=== PATIENT | female | born 1970 | race American Indian/Alaskan Native ===

== ENCOUNTER 2016-10-22 07:25 | Emergency (ER) | payer MEDICAID ==
[2016-10-22 07:53] VITALS: BMI 26.4
--- NOTE | 2016-10-22 08:48 | C.PDOC ---
History Of Present Illness 46 y/o female with hx of migraines, on topamax bid and imitrex for breakthrough pain, c/o gradual onset diffuse headache, similar to prior migraine headaches, since Saturday. pt tried imitrex on 2 occasions with no relief. +photophobia, + nausea, vomited 2 x yesterday. pt had intermittent blurred vision. pt reports more frequent headaches in last month. no fever or chills. no head trauma. no neck stiffness. Time Seen by Provider: 10/22/16 08:11 Chief Complaint (Nursing): Headache History Per: Patient History/Exam Limitations: no limitations Onset/Duration Of Symptoms: Persistent (1 month ), Worse Since (3 days) Current Symptoms Are (Timing): Still Present Severity: Moderate Pain Scale Rating Of: 8 Quality: Sharp Preceeding Symptoms: Visual Disturbances, Known Migraine Symptoms Associated Symptoms: Photophobia, Blurred Vision, Nausea, Vomiting. denies: Extremity Weakness Recent travel outside of the [place]: No Past Medical History Reviewed: Historical Data, Nursing Documentation, Vital Signs Vital Signs: Last Vital Signs Temp 97.7 F 10/22/16 07:35 Pulse 91 H 10/22/16 07:35 Resp 20 10/22/16 07:35 BP 117/83 10/22/16 07:35 Pulse Ox 99 10/22/16 09:04 - Medical History PMH: Asthma, HTN, Migraine Surgical History: No Surg Hx - [facility] Procedures ESOPHAGOGASTRODUODENOSCOPY [EGD] W/CLOSED BIOPSY (05/20/14) Family History: States: No Known Family Hx - Social History Hx Tobacco Use: No Hx Alcohol Use: Yes (wine on occasion) Hx Substance Use: No (Denied) - Immunization History Hx Tetanus Toxoid Vaccination: No Hx Influenza Vaccination: Yes (Jun 2015) Hx Pneumococcal Vaccination: No Review Of Systems Except As Marked, All Systems Reviewed And Found Negative. Constitutional: Negative for: Fever, Chills Eyes: Positive for: Vision Change (intermittent blurred vision). Negative for: Pain Cardiovascular: Negative for: Chest Pain, Palpitations Respiratory: Negative for: Cough, Shortness of Breath Gastrointestinal: Positive for: Nausea, Vomiting. Negative for: Abdominal Pain Neurological: Positive for: Headache. Negative for: Weakness, Numbness, Confusion, Altered Mental Status, Dizziness Physical Exam - Physical Exam Appears: Non-toxic, No Acute Distress Skin: Warm, Dry, No Rash Head: Atraumatic, Normacephalic Eye(s): bilateral: Normal Inspection, PERRL, EOMI Ear(s): Bilateral: Normal Nose: Normal Throat: Normal, No Erythema, No Exudate Neck: Normal, Normal ROM, Supple Chest: Symmetrical, No Tenderness Cardiovascular: Rhythm Regular, No Murmur Respiratory: Normal Breath Sounds, No Rales, No Wheezing Gastrointestinal/Abdominal: Normal Exam, Soft, No Tenderness, No Guarding, No Rebound Extremity: Normal ROM, No Swelling Neurological/Psych: Oriented x3, Normal Speech, Normal Motor, Normal Sensation Gait: Steady ED Course And Treatment - Laboratory Results Urine POC: Negative O2 Sat by Pulse Oximetry: 99 Progress Note: pt reports decreased pain after Reglan. Will give toradol and re- assess. 1037 am pt reports rapp resolved. Medical Decision Making Medical Decision Making: PLAN: * POC Urine * Reglan IVPB Disposition Counseled Patient/Family Regarding: Diagnosis, Need For Followup - Disposition Disposition: HOME/ ROUTINE Disposition Time: 10:37 Condition: IMPROVED Additional Instructions: Follow up with your doctor in 1=2 days. Return to ER for any worsening symptoms. Forms: General Discharge Instructions - Clinical Impression Clinical Impression: Migraine - PA / S[employer]IOR [employer] / Resident Statement MD/DO has reviewed & agrees with the documentation as recorded. - Scribe Statement The provider has reviewed the documentation as recorded by the Scribe Rosio Hart All medical record entries made by the Scribe were at my direction and personally dictated by me. I have reviewed the chart and agree that the record accurately reflects my personal performance of the history, physical exam, medical decision making, and the department course for this patient. I have also personally directed, reviewed, and agree with the discharge instructions and disposition.
[2016-10-22 10:44] VITALS: BP 110/72; PULSE 63; RESP 18; TEMP 98.2; O2SAT 100
== END 2016-10-22 10:56 | disposition home or self-care (01) ==
LOC: C.ER 07:25
DX: G43.909 Migraine, unspecified, not intractable, without status migrainosus (principal)
CPT/HCPCS: 96374; 96375; 99285; J1885; J2765

== ENCOUNTER 2018-08-23 10:45 | Outpatient (CLI) | payer MEDICAID | END 2018-08-23 10:46 | disposition home or self-care (01) | LOC: C.MAMMO 10:45 | DX: Z12.31 Encounter for screening mammogram for malignant neoplasm of breast (principal) ==